=== PATIENT | female | born 1950 | race Caucasian/White ===

== ENCOUNTER 2022-03-26 08:35 | Outpatient (REF) | payer MEDICARE, OTHER, SELFPAY ==
--- NOTE | 2022-03-26 | PFT_ITS ---
INDICATION: Asthma. SPIROMETRY: FEV1 to FVC 71% with an FEV1 of 0.9 L, which is 49% predicted, an FVC of 1.25 L, which is 52% predicted. No significant response to bronchodilators noted. Maximum voluntary ventilation 47% predicted. LUNG VOLUMES: Total lung capacity 76% predicted. The expiratory reserve volume is 25% predicted. DIFFUSION CAPACITY: DLCO 90% predicted. COMPARISONS: None. INTERPRETATION: The patient appears to have obstructive ventilatory defect consistent with severe obstructive lung disease. She likely has a component of uncontrolled asthma and also of the possibility of asthma-COPD overlap syndrome. Based on the flow volume loop, it appears that she does have significant to the expiratory phase consistent with an obstructive process. In addition to that, she has significant small airways disease. Her maximum voluntary ventilation is also severely decreased suggesting significant deconditioning. Her lung volumes also demonstrate a restrictive ventilatory defect consistent with restrictive lung disease. Need to consider underlying interstitial lung conditions and/or neuromuscular conditions. Diffusion capacity is within normal limits. Clinical correlation warranted. MD JUAN M Bah/MODYenifer / [id number]
== END 2022-03-26 08:36 | disposition home or self-care (01) ==
LOC: HO.RESP 08:35
PROVIDERS: PCP Student in an Organized Health Care Education/Training Program; Visit Provider Student in an Organized Health Care Education/Training Program
DX: J45.909 Unspecified asthma, uncomplicated (principal)
CPT/HCPCS: 94060; 94727; 94729

== ENCOUNTER 2023-10-14 08:43 | Outpatient (REF) | payer MEDICARE, OTHER, SELFPAY ==
[2023-10-14 14:53] LABS: Anion Gap 15 (12-20); Blood Urea Nitrogen 13 mg/dL (9-16); Calcium 9.9 mg/dL (8.4-10.2); Carbon Dioxide 27 mmol/L (22-29); Chloride 101 mmol/L (96-108); Estimated Glomerular Filt Rate > 60; Glucose Random 103 mg/dL (60-115); Potassium 3.7 mmol/L (3.3-5.1); Sodium 139 mmol/L (135-145)
[2023-10-14 15:40] LABS: Creatinine Urine 37.55 mg/dL; Microalbum/Creatinine Ratio Ur 15.9 ug/mg cr (<30)
== END 2023-10-14 08:44 | disposition home or self-care (01) ==
LOC: HO.CHCLDS 08:43
PROVIDERS: Visit Provider Internal Medicine Nephrology
DX: I10 Essential (primary) hypertension (principal)
CPT/HCPCS: 36415; 80048; 82043; 82570

== ENCOUNTER 2024-03-09 07:05 | Day surgery (SDC) | payer MEDICARE, MEDICAID, SELFPAY ==
--- NOTE | 2024-03-07 10:20 | HO.ANESPROP2 ---
HPI - Anesthesia Eval Consult details Narrative: 73yo F for Colonoscopy PMFSH Active Problems Active Problems: All Active Problems Encounter for screening colonoscopy (Acute) Asthma (Acute) Past Medical History Medical History Hypothyroid Asthma Surgical History Surgical History Hx of colonoscopy Social History Social History Household Members: Spouse Alcohol intake: never Patient Tobacco Use Status: Never used Tobacco Current occupational status: unemployed Meds Allergies Allergy/AdvReac Type Severity Reaction Status Date / Time nifedipine [From ADALAT] Allergy Unknown EASH Verified 03/09/24 08:17 verapamil [VERAPAMIL] Allergy Unknown RASH Verified 03/09/24 08:17 Home Medications ?Medication ?Instructions ?Recorded ?Confirmed ?Last Taken ?Type albuterol sulfate 90 mcg/actuation 1 inh inhalation QID 10/14/23 03/09/24 03/09/24 06:30 History aerosol inhaler (Ventolin HFA) budesonide 180 mcg/actuation 1 inh inhalation DAILY 10/14/23 03/09/24 Unknown History breath activated powder inhaler (Pulmicort Flexhaler) hydralazine 25 mg tablet 25 mg PO TID 10/14/23 03/09/24 03/09/24 06:30 History hydrochlorothiazide 25 mg tablet 25 mg PO DAILY 10/14/23 03/09/24 03/09/24 06:30 History levothyroxine 25 mcg capsule 25 mcg PO DAILY 10/14/23 03/09/24 Unknown History Assessment and Plan Assessment Anesthesia Assessment: Chart Reviewed
--- NOTE | 2024-03-09 07:53 | MHC.SHP ---
Pre-Procedural Eval Section A - 24 Hr Update-Section A only Date of Service: 03/09/24 Section B - Complete if H&P > 30 days Chief Complaint: screening Details of Present Illness: asthma Allergies: Allergies Allergy/AdvReac Type Severity Reaction Status Date / Time nifedipine [From ADALAT] Allergy Unknown EASH Unverified 10/14/23 09:35 verapamil [VERAPAMIL] Allergy Unknown RASH Unverified 10/14/23 09:35 Review of Systems Review of Systems Comment: Ten point ROS negative Exam Exam Comment: Gen appear: No acute distress HEENT: no icterus Chest: No overt resp distress Abd: soft, nontender, nondistended Psych: Stable affect, answering questions appropriately Neuro: A/Ox3 noted to move all extremities spontaneously Ext: no peripheral edema Plan Diagnosis/Plan: Unchanged I have reviewed the history and physical and performed a pertinent physical examination on my patient. No changes have occurred unless specified. Time Spent With Patient Time: Total time managing care of this patient today ____ minutes.
[2024-03-09 08:18] VITALS: BMI 37.6
[2024-03-09 08:30] VITALS: BP 153/82; PULSE 108; RESP 16; TEMP 36.3; O2SAT 99
[2024-03-09] MEDS: Lactated Ringers 1,000 ML 100 ML IVCONT (08:50)
--- NOTE | 2024-03-09 09:19 | P.OPN-COLO_ITS ---
Colonoscopy Operative Note Operative Note Date of Service: 03/09/24 Narrative: Procedure: Colonoscopy Indication: Screening Endoscopist: Carol Lowe MD Anesthesia Provider: Dr Katarzyna Lambert Anesthesia type: MAC Instrument: Olympus [id number]-H190L Consent: Indication, risks vs benefits, and alternatives were discussed with the patient who gave written informed consent to proceed. EKG, pulse, pulse oximetry and blood pressure were monitored throughout the procedure. Please see anesthesia flowsheet. Procedure: The patient was brought to the procedure room and placed in the left lateral decubitus position. IV medications were administered by the anesthesia provider in attendance. A digital rectal exam was performed which was normal. A distal attachment cap was affixed to the tip of the colonoscope which was then inserted through the anus and advanced through the colon to the cecum at 75 c m,and terminal ileum. Appendiceal orifice and ileocecal valve were identified. Mucosa was carefully examined under high definition white light as the instrument was slowly withdrawn in a retrograde panoramic fashion. Retroflexion was performed in ascending colon and rectum. The procedure was not difficult. There were no immediate obvious complications. The quality of the prep was BBPS: 2+3+3 = adequate Withdrawal time 7 minutes. Limitations: No limitations. Findings: Mucosa: Normal to cecum and terminal ileum. Protruding lesions: * 1 sessile polyp of size 2 mm in sigmoid colon. Cold snare polypectomy was performed. The polyp was completely removed and retrieved. * Medium internal hemorrhoids without stigmata of recent bleeding. Excavated lesions: * Mild diverticulosis of sigmoid colon. Impression: 1. Normal colon and terminal ileum mucosa 2. Total of 1 polyp removed 3. Internal hemorrhoids 4. Diverticulosis Recommendations: - Follow path results. - Repeat colonoscopy in 7-10 years if patient in good health.
--- NOTE | 2024-03-09 09:39 | P.CONAN_ITS ---
[facility] Active Problems Active Problems: All Active Problems Encounter for screening colonoscopy (Acute) Asthma (Acute) Past Medical History Medical History Hypothyroid Asthma Functional capacity: independent ambulation Patient : No Family History Family history of problems with anesthesia: No Surgical History Surgical History Hx of colonoscopy History of Problems with Anesthesia: No Social History Social History Household Members: Spouse Alcohol intake: never Patient Tobacco Use Status: Never used Tobacco Use of substances other than those prescribed or required for medical reasons: No Are you DNR?: No Advance Directives: No Advance Directives Information Provided: Yes Current occupational status: unemployed Meds Allergies Allergy/AdvReac Type Severity Reaction Status Date / Time nifedipine [From ADALAT] Allergy Unknown EASH Verified 03/09/24 08:17 verapamil [VERAPAMIL] Allergy Unknown RASH Verified 03/09/24 08:17 Active Medications: Current Medications Albuterol Sulfate (Albuterol Sulfate (0.083%) 2.5 Mg/3 Ml Vial.Neb) 2.5 mg INHALE ONCE PRN PRN Reason: Shortness of Breath/Wheezing Lactated Ringer's (Lr) 1,000 mls @ 100 mls/hr IVCONT .Q10H CLAUDE Last Admin: 03/09/24 08:50 Dose: 100 mls/hr Home Medications ?Medication ?Instructions ?Recorded ?Confirmed ?Last Taken ?Type albuterol sulfate 90 mcg/actuation 1 inh inhalation QID 10/14/23 03/09/24 03/09/24 06:30 History aerosol inhaler (Ventolin HFA) budesonide 180 mcg/actuation 1 inh inhalation DAILY 10/14/23 03/09/24 Unknown History breath activated powder inhaler (Pulmicort Flexhaler) hydralazine 25 mg tablet 25 mg PO TID 10/14/23 03/09/24 03/09/24 06:30 History hydrochlorothiazide 25 mg tablet 25 mg PO DAILY 10/14/23 03/09/24 03/09/24 06:30 History levothyroxine 25 mcg capsule 25 mcg PO DAILY 10/14/23 03/09/24 Unknown History Exam Height,Weight and Vital Signs: Height 4 ft 11 in Weight 84.368 kg Last Vital Signs Temp 97.4 F 03/09/24 08:30 Pulse 108 H 03/09/24 08:30 Resp 16 03/09/24 08:30 BP 153/82 H 03/09/24 08:30 Pulse Ox 99 03/09/24 08:30 O2 Del Method Room Air 03/09/24 08:30 Airway Mallampati Class: III TM Dist: >3cm Neck ROM: Full Heart: RRR Lungs: CTA Assessment and Plan Assessment Anesthesia Assessment: Anesthesia Plan Discussed and Chart Reviewed Final Anesthetic Review Family History of Problems with Anesthesia: No History of Problems with Anesthesia: No NPO: Yes ASA Class: II Final Preanesthetic Review: Meds/Allgs Chart Reviewed, Consent Obtained/Reviewed and Anes Risks/Benef Reviewed Patient Risk: Low Procedure Risk: Low Anesthetic Plan Anesthetic Plan: MAC: Disposition: Standard PACU
[2024-03-09 09:50] VITALS: BP 105/61; PULSE 84; RESP 20; TEMP 36.4; O2SAT 96
[2024-03-09 10:05] VITALS: BP 123/73; PULSE 92; RESP 20; TEMP 36.6; O2SAT 98
--- NOTE | 2024-03-09 10:51 | HO.POSTANES ---
Post Anesthesia Evaluation Post Anesthesia Evaluation Date of Service: 03/09/24 Vital Signs: Vital Signs Temp Pulse Resp BP Pulse Ox O2 Del Method 03/09/24 10:05 98 F 92 20 123/73 98 Room Air 03/09/24 09:50 97.6 F 84 20 105/61 96 Room Air 03/09/24 08:30 97.4 F 108 H 16 153/82 H 99 Room Air Anesthesia: Monitored Mental Status: Awake Pain Control: Satisfactory Nausea/Vomiting: None Hydration: Adequate Anesthesia-Related Issues: No Anes. Related Issues
== END 2024-03-09 10:39 | disposition home or self-care (01) ==
PROVIDERS: PCP Student in an Organized Health Care Education/Training Program; Visit Provider Internal Medicine
PROC: 0DJD8ZZ Inspection of Lower Intestinal Tract, Via Natural or Artificial Opening Endoscopic (ICD-10-PCS; CPT 45378; principal; 2024-03-09 09:30)
DX: Z12.11 Encounter for screening for malignant neoplasm of colon (principal); D12.5 Benign neoplasm of sigmoid colon; K57.30 Diverticulosis of large intestine without perforation or abscess without bleeding; K64.8 Other hemorrhoids; J45.909 Unspecified asthma, uncomplicated; Z79.899 Other long term (current) drug therapy
CPT/HCPCS: 45385; 88305; J2003; J2704

== ENCOUNTER → 2024-03-09 07:05 | Outpatient (BNV) | payer MEDICARE, MEDICAID, SELFPAY | PROVIDERS: PCP Student in an Organized Health Care Education/Training Program; Visit Provider Internal Medicine | DX: Z12.11 Encounter for screening for malignant neoplasm of colon (principal); D12.5 Benign neoplasm of sigmoid colon; K57.30 Diverticulosis of large intestine without perforation or abscess without bleeding; K64.8 Other hemorrhoids | CPT/HCPCS: 45385 ==

== ENCOUNTER 2024-03-30 10:12 | Outpatient (REF) | payer MEDICARE, SELFPAY ==
[2024-03-30 14:15] LABS: Appearance Urine Clear; Color Urine Yellow; Glucose Urine UA Negative (Negative); Leukocyte Esterase Urine Moderate (2+) (Negative); Nitrite Urine Negative (Negative); PH 5.5 (5.0-9.0); Specific Gravity - Urine 1.015 (1.005-1.025); UMIC TRIGGER UACC YES; Urine Blood Negative (Negative); Urine Ketones Negative (Negative); Urine Protein Negative (Neg-Trace)
[2024-03-30 14:40] LABS: Bacteria Urine Trace (None Seen); Hyaline Casts Urine 0-2 /LPF (0-2); RBC Urine 0-2 /HPF (0-2); UACC Culture Trigger YES
[2024-03-30 14:56] LABS: MANUAL DIFF FLAG NO
[2024-03-30 15:02] LABS: Creatinine Urine 106.15 mg/dL; Microalbum/Creatinine Ratio Ur 7.5 ug/mg cr (<30)
[2024-03-30 15:03] LABS: Basophils Percent Auto 0.4 % (0-2); Eosinophils Absolute Auto 0.1 X10*3/uL (0.0-0.4); Eosinophils Percent Auto 1.9 % (0-4); Hematocrit 34.3 % (37.0-47.0); Imm Gran Abs Auto 0.02 X10*3/uL (0.00-0.03); Imm Gran Pct Auto 0.3 % (0.0-0.4); Lymphocytes Absolute Auto 2.1 X10*3/uL (1.2-4.9); Lymphocytes Percent Auto 28.5 % (20-40); Mean Corpuscular HGB Conc 29.2 g/dl (31.0-35.0); Mean Corpuscular Hemoglobin 21.4 pg (27.0-33.0); Mean Corpuscular Volume 73.4 fL (80.0-98.0); Mean Platelet Volume 9.2 fL (9.4-12.3); Monocytes Absolute Auto 0.5 X10*3/uL (0.1-1.2); Monocytes Percent Auto 7.4 % (2-11); Neutrophils Absolute Auto 4.4 x10*3/uL (2.0-8.3); Neutrophils Percent Auto 61.5 % (45-73); Platelet Count 337 X10*3/uL (160-400); Red Blood Count 4.67 X10*6/uL (4.20-5.50); Red Cell Distribution Width 17.7 % (11.0-16.0); White Blood Count 7.2 X10*3/uL (4.8-10.8)
[2024-03-30 15:10] LABS: Estimated Average Glucose 120 mg/dL; Hemoglobin A1C 108.1475 umol/L; Hemoglobin A1c % 5.8 % (<6.0); Total Hemoglobin (HGBA1C) 2733.0589 umol/L
[2024-03-30 15:24] LABS: Anion Gap 13 (12-20); Blood Urea Nitrogen 16 mg/dL (9-16); Calcium 9.8 mg/dL (8.4-10.2); Carbon Dioxide 26 mmol/L (22-29); Chloride 103 mmol/L (96-108); Cholesterol 155 mg/dL (<200); Estimated Glomerular Filt Rate > 60; Glucose Fasting 191 mg/dL (60-99); HDL Cholesterol 66 mg/dL (>40); LDL Cholesterol Calculated 67 mg/dL (<100); Potassium 4.1 mmol/L (3.3-5.1); Sodium 138 mmol/L (135-145); Triglycerides 113 mg/dL (<150)
== END 2024-03-30 10:13 | disposition home or self-care (01) ==
LOC: HO.CHCLDS 10:12
PROVIDERS: Visit Provider Internal Medicine Nephrology
DX: I10 Essential (primary) hypertension (principal); Z13.1 Encounter for screening for diabetes mellitus; R82.90 Unspecified abnormal findings in urine
CPT/HCPCS: 36415; 80048; 80061; 81001; 82043; 82570; 83036; 85025; 87086

== ENCOUNTER 2025-01-26 08:49 | Outpatient (REF) | payer MEDICARE, MEDICAID, SELFPAY ==
--- OUTSIDE RECORDS SUMMARY | 2025-01-25 10:15 | XMS_ITS | Encounter Summary ---
Author Organization [employer] Address [address] [facility] [address] [place] [address] Care Team Providers Care Police Matron Name Role Phone Dana Horton MD Primary Care Provider [phone] Reason for Visit * Reason Comments Adult care visit Encounter Details Date Type Department Care Team ([facility] st Contact Info) Description 01/25/2025 10:15 AM EDT Office Visit [facility] PEDS [address] [place] [address] Dana Horton MD [address] [place] [address] Essential hypertension (Primary Dx); Moderate persistent asthma with acute exacerbation; Hypothyroidism, unspecified type; Encounter for immunization; Candidal intertrigo; Encounter for annual wellness visit Social History Tobacco Use Types Packs/Day Years Used Date Smoking Tobacco: Never Passive Smoke Exposure: Never Smokeless Tobacco: Never Tobacco Cessation:Counseling Given: Not Answered Alcohol Use Standard Drinks/Week Comments Never 0 (1 standard drink = 0.6 oz pur e alcohol) Depression Answer Date Recorded Patient Health Questionnaire-9 Score 0 01/25/2025 Patient Health Questionnaire-9 Score 0 01/25/2025 Last PHQ-9: Questionnaire Data Not on file 0 01/25/2025 Housing Stability Answer Date Recorded What is your housing situation today? I have abhishek braswell 01/17/[address] you li ve. Do you have problems with any of the following? None of the above 01/17/2025 Food Insecurity Answer Date Recorded Within the past 12 months, y ou worried that your food would run out before you got money to buy more: Never True 01/17/2025 Within the past 12 months,th e food you bought just didn't last and you didn't have enough money to get more: Never True Transportation Answer Date Recorded In the past 12 months, has l ack of transportation kept you from medical appts, meetings, work or from getting things needed for daily living? No 01/17/2025 Utilities Answer Date Recorded In the past 12 months, has t he electric, gas, oil or water company threatened to shut off services in your home? No 01/17/2025 Depression Answer Date Recorded Patient Health Questionnaire-2 Score 0 01/25/2025 Internet Access Answer Date Recorded Internet Access Q1 Yes 01/17/2025 Internet Access Q2 Not on file 01/17/2025 Comments No Sex and Gender Information Value Date Recorded Sex Assigned at Female 03/23/2022 10:14 AM EDT Legal Sex Female 10:14 AM EDT Gender Identity Female 03/23/2022 10:14 AM EDT Sexual Orientation Straight 03/23/2022 10 :14 AM EDT documented as of this encounter Last Filed Vital Signs Vital Sign Reading Time Taken Comments Blood Pressure 157/88 01/25/2025 9:49 AM EDT Pulse 100 01/25/2025 9:49 AM EDT Temperature 36.1 C (97 F) 01/25/2025 9:49 AM EDT Respiratory Rate 22 01/25/2025 9:49 AM EDT Oxygen Saturation 99% 01/25/2025 9:49 AM EDT Inhaled Oxygen Concentration - - Weight 83 kg (183 lb) 01/25/2025 9:49 AM EDT Height 147.3 cm (4' 10 ) 01/25/2025 9:49 AM EDT Body Mass Index 38.25 01/25/2025 9:49 AM EDT documented in this encounter Functional Status * Over the past 2 weeks, how often have you been bothered by any of the following problems? Question Answer Date of Assessment Author Patient Health Questionnaire -2 Score 0 01/25/2025 10:03 AM EDT La Knight MA * Little interest or pleasure in doing things Answer Date of Assessment Author Not at all 01/25/2025 10:03 AM EDT Georgi Knight MA * Feeling down, depressed, or hopeless Answer Date of Assessment Author Not at all 01/25/2025 10:03 AM Georgi Chacon MA * Trouble falling or staying asleep, or sleeping too much Answer Date of Assessment Author Not at all 01/25/2025 10:03 AM Georgi Chacon MA * Feeling tired or having little energy Answer Date of Assessment Author Not at all 01/25/2025 10:03 AM Georgi Chacon MA * Poor appetite or overeating Answer Date of Assessment Author Not at all 01/25/2025 10:03 AM Georgi Chacon MA * Feeling bad about yourself - or that you are a failure or have let yourself or your family down Answer Date of Assessment Author Not at all 01/25/2025 10:03 AM Georgi Chacon MA * Trouble concentrating on things, such as reading the newspaper or watching television Answer Date of Assessment Author Not at all 01/25/2025 10:03 AM Georgi Chacon MA * Moving or speaking so slowly that other people could have noticed? Or the opposite - being so fidgety or restless that you have been moving around a lot more than usual. Answer Date of Assessment Author Not at all 01/25/2025 10:03 AM Georgi Chacon MA * Thoughts that you would be better off or hurting yourself in some way Answer Date of Assessment Author Not at all 01/25/2025 10:03 AM Georgi Chacon MA * Patient Health Questionnaire-9 Score Answer Date of Assessment Author 0 01/25/2025 10:03 AM Georgi Chacon MA documented as of this encounter Progress Notes * Dana Horton MD - 01/25/2025 10:15 AM EDT Images from the original note were not included. Subjective Patient ID: Josephine Guerrero is a 74 y.o. female who presents for Adult care visit. Hypertension This is a chronic problem. The current episode started more than 1 year ago. The problem is unchanged. The problem is controlled. Pertinent negatives include no chest pain, headaches, neck pain, palpitations or shortness of breath. Review of Systems Constitutional: Negative. Respiratory: Negative. Negative for shortness of breath. Cardiovascular: Negative for chest pain and palpitations. Gastrointestinal: Negative. Genitourinary: Negative. Musculoskeletal: Negative for neck pain. Neurological: Negative for headaches. Objective Physical Exam Constitutional: Appearance: Normal appearance. HENT: Head: Normocephalic and atraumatic. Right Ear: Tympanic membrane normal. Left Ear: Tympanic membrane normal. Mouth/Throat: Mouth: Mucous membranes are moist. Eyes: Pupils: Pupils are equal, round, and reactive to light. Cardiovascular: Rate and Rhythm: Normal rate and regular rhythm. Pulmonary: Effort: Pulmonary effort is normal. Breath sounds: Normal breath sounds. Abdominal: General: Abdomen is flat. Palpations: Abdomen is soft. Musculoskeletal: General: Normal range of motion. Skin: General: Skin is warm. Findings: Rash present. Rash is macular. Neurological: General: No focal deficit present. Mental Status: She is alert. Psychiatric: Mood and Affect: Mood normal. Behavior: Behavior normal. Assessment/Plan Diagnoses and all orders for this visit: Essential hypertension Comments: Well controlled No changes in meds Maintain a low-sodium diet (less than 2 grams per day). Maintain a regular cardiovascular exercise program. Advised to maintain a low-fat, low-cholesterol diet. Counseled regarding importance of weight loss. Counseled re: potential co-morbidities including cardiovascular disease. Orders: - Basic Metabolic Panel; Future - Lipid Panel, Standard; Future - Hepatic Function Panel; Future Moderate persistent asthma with acute exacerbation Comments: Stable No acute episodes Hypothyroidism, unspecified type Comments: Labs ordered today Orders: - TSH with Reflex to Free T4; Future Encounter for immunization Candidal intertrigo Comments: Started On Nystatin piwder Advised to keep area dry and Clean Other orders - aspirin 81 MG EC tablet; Take 1 tablet (81 mg) by mouth Once per day. - nystatin (Mycostatin) 043935 UNIT/GM powder; Apply topically 2 times daily. documented in this encounter Plan of Treatment Upcoming Encounters Date Type Department Care Team (Late st Contact Info) Description 05/11/2025 10:00 AM EST Office Visit [facility] ADULT DENTAL [address] [place] [address] Aminta Rico Scheduled Orders Name Type Priority Associated Diagnoses Orde r Schedule Basic Metabolic Panel Lab Routine Essential hypertension Expected: 01/25/2025 (Approximate), Expires: 01/25/2026 Lipid Panel, Standard Lab Routine Essential hypertension Expected: 01/25/2025 (Approximate), Expires: 01/25/2026 Hepatic Function Panel Lab Routine Essential hypertension Expected: 01/25/2025 (Approximate), Expires: 01/25/2026 TSH with Reflex to Free T4 Lab Routine Hypothyroidism, unspecified type Expected: 01/25/2025 (Approximate), Expires: 01/25/2026 documented as of this encounter Visit Diagnoses Diagnosis Essential hypertension- Primary Unspecified essential hypertension Moderate persistent asthma with acute exacerbation Hypothyroidism, unspecified type Encounter for immunization Candidal intertrigo Candidiasis of skin and nails Encounter for annual wellness visit documented in this encounter Additional Health Concerns Assessment Noted Time PHQ-9 Depression Total Score: 0 01/26/20 25 10:03 AM EDT documented as of this encounter Care Teams Police Matron Relationship Specialty Start Date End Date Dana Horton MD [address] [place] [id number] PCP - General Family Medicine 10/25/17 documented as of this encounter
--- OUTSIDE RECORDS SUMMARY | 2025-01-26 09:28 | XMS_ITS | Encounter Summary ---
Author Organization [facility], Address [address] [place] [address] Phone Care Team Providers Care [employer] Teacher Name Role Phone Dana Horton MD Primary Care Provider [phone] Encounter Details Date Type Department Care Team (Late Contact Info) Description 11/12/2021 Documentation Only [facility] [address] [place] [phone] Elsa Puente PA [address] [place] [phone] Social History Tobacco Use Types Packs/Day Years Used Date Smoking Tobacco: Never Alcohol Use Standard Drinks/Week Comments No 0 (1 standard drink = 0.6 oz pur e alcohol) Comments Unknown Sex and Gender Information Value Date Recorded Sex Assigned at Not on file Legal Sex Female 4:32 PM EST Gender Identity Not on file Sexual Orientation Not on file documented as of this encounter Plan of Treatment Upcoming Encounters Date Type Department Care Team (Late st Contact Info) Description 03/14/2025 9:40 AM EDT Office Visit [facility] [address] [place] [phone] Alfredo Iglesias MD [address] [place] [phone] documented as of this encounter Visit Diagnoses Not on filedocumented in this encounter Care Teams [employer] Teacher Relationship Specialty Start Date End Date Dana Horton MD [address] [place] [address] PCP - General 03/28/19 documented as of this encounter
--- OUTSIDE RECORDS SUMMARY | 2025-01-26 09:28 | XMS_ITS | Clinical Summary ---
Author Organization [facility], Address [address] [place] [address] [place] [address] Phone Care Team Providers Care Handbell Choir Director Name Role Phone Dana Horton MD Primary Care Provider [phone] Allergies Active Allergy Reactions Criticality Noted Date Comments Nick Inhibitors Other (see comments) 04/10/2020 Cough Nifedipine 04/10/2020 Verapamil 04/10/2020 Medications hydroCHLOROthia zide (HYDRODIURIL) 25 MG tablet Take 25 mg by mouth 1 (one) time each day Active irbesartan (AVAPRO) 300 MG tablet Take 300 mg by mouth every night Active SUMAtriptan (IMITREX) 100 MG tablet Take 100 mg by mouth 1 (one) time if needed for migraine Active aspirin (Aspirin EC Low Strength) 81 MG EC tablet Take 81 mg by mouth 1 (one) time each day Active topiramate (TOPAMAX) 25 MG tablet Take 1 tablet by mouth 1 (one) time each day Active metoprolol succinate XL (Toprol XL) 100 MG 24 hr tablet Take 1 tablet by mouth 1 (one) time each day 6 Active hydrALAZINE 25 MG tablet Take 25 mg by mouth daily Active levothyroxine (SYNTHROID, LEVOTHROID) 25 MCG tablet Take 25 mcg by mouth 1 (one) time each day 2 Active FeroSul 325 (65 Fe) MG tablet TAKE 1 TABLET BY MOUTH EVERY DAY WITH BREAKFAST 30 tablet 11 2 Active Active Problems Problem Noted Date Diagnosed Date Chronic kidney disease 09/28/2019 Essential (primary) hypertension 09/28/2019 Resolved Problems Problem Noted Date Diagnosed Date Resolved Date Other iron deficiency anemia 04/11/2020 10/13/2020 Cyst of kidney 10/02/2019 10/13/2020 Anemia in chronic kidney disease 09/28/2019 10/13/2020 Immunizations Immunization Administration Dates Next Due H1N1 Inj 04/22/2016 Moderna SARS-COV-2 09/18/2020,08/21/2020 Family History Medical History Relation Comments Diabetes Father Cancer Mother aunts Hypertension Mother Hypertension Sibling 1 Stroke Sibling 2 brother Relation Status Comments Father Unknown Mother Unknown Sibling 1 Sibling 2 Social History Tobacco Use Types Packs/Day Years Used Date Smoking Tobacco: Never Tobacco Cessation:Counseling Given: Not Answered Alcohol Use Standard Drinks/Week Comments No 0 (1 standard drink = 0.6 oz pur e alcohol) Comments Unknown Sex and Gender Information Value Date Recorded Sex Assigned at Not on file Legal Sex Female 4:32 PM EST Gender Identity Not on file Sexual Orientation Not on file Last Filed Vital Signs Vital Sign Reading Time Taken Comments Blood Pressure 126/86 06/30/2022 1:27 PM EST Pulse 77 03/30/2019 12:00 PM EST Temperature - - Respiratory Rate 16 03/30/2019 12:00 PM EST Oxygen Saturation - - Inhaled Oxygen Concentration - - Weight 84.9 kg (187 lb 3.2 oz) 06/30/2022 1:27 P M EST Height 149.9 cm (4' 11 ) 06/30/2022 1:27 PM EST Body Mass Index 37.81 06/30/2022 1:27 PM EST Plan of Treatment Upcoming Encounters Date Type Department Care Team (Late st Contact Info) Description 03/14/2025 9:40 AM EDT Office Visit [facility], [address] [place] [phone] Alfredo Iglesias MD [address] [facility] [place] [address] Health Maintenance Due Date Last Done Comments Breast Cancer Screening 1952 Colorectal Cancer Screening: Annual FOBT 2001 Colorectal Cancer Screening: Colonoscopy 2001 Colorectal Cancer Screening: Sigmoidoscopy 2001 Diabetes: Hemoglobin A1C 02/03/2024 06/25/2022 Diabetes: Ophthalmology Exam 02/03/2024 Diabetes: Pedal Pulse Checked 02/03/2024 Diabetes: Sensory Foot Exam 02/03/2024 Diabetes: Visual Foot Exam 02/03/2024 Influenza Vaccine (#1) 2025 , 03/07/2019, 04/28/2018, Additional history exists Pneumococcal Vaccine: 50+ Years Completed 11/11/2022, 07/27/2018 Pneumococcal Vaccine: Peds (0 to 5 Years) and At-Risk Patients (6 to 49 Years) Discontinued 11/11/2022, 07/27/2018 Hepatitis B Vaccine Aged Out No longe r eligible based on patient's age to complete this topic Procedures Procedure Name Priority Date/Time Associated Diagnosis Comments HEMOGLOBIN A1C Routine 06/25/2022 9:08 AM EST Chronic kidney disease stage 2 Essential (primary) hypertension Other iron deficiency anemia Plantar fasciitis Other low back pain from Last 3 Months or Most Recently Relevant to Health Maintenance Results * (ABNORMAL) Hemoglobin A1c (06/25/2022 9:08 AM EST) Hemoglobin A1C 5.7(H) (4.0-5.6) % [facility] Comment: MONITORING: In known diabetic patients, hemoglobin A1c targets should be discussed with health care provider. DIAGNOSTIC USE: The [place] Diabetes [employer] (ADA) and the World Health Organization (WHO) recommend the use of HbA1c to diagnose diabetes using a threshold of 6.5%. Patients who have an HbA1c between 5.7% and 6.4% are considered at increased risk for developing diabetes in the future. CAUTION: Falsely low HbA1c results may be observed in patients with hemolytic anemia, homozygous forms of abnormal hemoglobin (e.g. SS, CC, SC), , recent blood loss or hemoglobin F greater than 7%. Fructosamine may be used as an alternate test in these cases. REFERENCE: ADA: Standards of Medical Care in Diabetes 2020, The Journal of Clinical and Applied Research and Education Volume 43, Supplement 1 Testing performed or reported by [facility] [employer], a Service of [facility], [address] [place] [address] Matt Paz MD, Natural Gas Treating Unit Operator [facility]# [id number] Blood specimen (specimen) Venous blood / Unknown 06/25/2022 9:08 AM EST 06/25/2022 9:10 AM EST Elsa JONES LAB BLOOD ORDERABLES Final Re sult DK from Last 3 Months or Most Recently Relevant to Health Maintenance Insurance Medicare Medicaid [place] Care Teams Handbell Choir Director Relationship Specialty Start Date End Date Dana Horton MD [address] [place] [id number] PCP - General 03/28/19
--- OUTSIDE RECORDS SUMMARY | 2025-01-26 09:28 | XMS_ITS | Encounter Summary ---
Author Organization [employer] Address [address] [facility] 7t [place] [address] Care Team Providers Care Construction Controller Name Role Phone Dana Horton MD Primary Care Provider [phone] Reason for Visit * Reason Onset Date Comments Chart prep 01/24/2025 Encounter Details Date Type Department Care Team ([facility] st Contact Info) Description 01/24/2025 Telephone [facility] MED & PEDS [address] [place] [address] Dana Horton MD [address] [place] [address] Chart prep Social History Tobacco Use Types Packs/Day Years Used Date Smoking Tobacco: Never Passive Smoke Exposure: Never Smokeless Tobacco: Never Alcohol Use Standard Drinks/Week Comments Never 0 [...] AM EDT documented as of this encounter Miscellaneous Notes * Telephone Encounter - La Knight [place] - 01/24/2025 2:54 PM EDT Chart Prep Labs: done Images: done Referrals: complete Vaccines due: due Screenings: STI screening Overdue care gaps: SBIRT and PHQ-9 documented in this encounter Plan of Treatment Upcoming Encounters Date Type Department Care Team (Late st Contact Info) Description 05/11/2025 10:00 AM EST Office Visit [facility] ADULT D[facility] [address] [place] [address] Aminta Rico documented as of this encounter Visit Diagnoses Not on filedocumented in this encounter Additional Health Concerns Assessment Noted Time PHQ-9 Depression Total Score: 0 11/12/19 23 10:21 AM EDT documented as of this encounter Care Teams Construction Controller Relationship Specialty Start Date End Date Dana Horton MD [address] [place] [id number] PCP - General Family Medicine 10/25/17 documented as of this encounter
--- OUTSIDE RECORDS SUMMARY | 2025-01-26 09:28 | XMS_ITS | Encounter Summary ---
Author Organization [employer] Address [address] [facility] 7t [place] [address] Care Team Providers Care Electrical Engineering Technician Name Role Phone Dana Horton MD Primary Care Provider [phone] Reason for Visit * Reason Comments Med Refill Encounter Details Date Type Department Care Team ([facility] st Contact Info) Description 01/20/[address] [facility] MED & PEDS [address] [place], [place] [phone] Dana Horton MD [address] [place] [address] Social History Tobacco Use Types Packs/Day Years Used Date Smoking Tobacco: Never Passive Smoke Exposure: Never Smokeless Tobacco: Never Alcohol Use Standard Drinks/Week Comments Never 0 (1 standard drink = 0.6 oz pur e alcohol) Depression Answer Date Recorded Patient Health Questionnaire-9 Score 0 11/11/2022 Housing Stability Answer Date Recorded What is [...] Date Recorded Patient Health Questionnaire-2 Score 0 11/11/2022 Internet Access Answer Date Recorded Internet Access Q1 Yes 01/17/2025 Internet Access Q2 Not on file 01/17/2025 Comments No Sex and Gender Information Value Date Recorded Sex Assigned at Female 03/23/2022 10:14 AM EDT Legal Sex Female 10:14 AM EDT Gender Identity Female 03/23/2022 10:14 AM EDT Sexual Orientation Straight 03/23/2022 10 :14 AM EDT documented as of this encounter Plan of Treatment Upcoming Encounters Date Type Department Care Team (Late st Contact Info) Description 05/11/2025 10:00 AM EST Office Visit [facility] [address] [place] [address] Aminta Rico documented as of this encounter Visit Diagnoses Not on filedocumented in this encounter Additional Health Concerns Assessment Noted Time PHQ-9 Depression Total Score: 0 11/12/19 23 10:21 AM EDT documented as of this encounter Care Teams Electrical Engineering Technician Relationship Specialty Start Date End Date Dana Horton MD [address] [place] [id number] PCP - General Family Medicine 10/25/17 documented as of this encounter
--- OUTSIDE RECORDS SUMMARY | 2025-01-26 09:28 | XMS_ITS | Encounter Summary ---
Author Organization [facility], Address [address] [place] [address] Phone Care Team Providers Care Mechanical Door Repairer Name Role Phone Dana Horton MD Primary Care Provider [phone] Encounter Details Date Type Department Care Team (Late st Contact Info) Description 11/04/2021 Documentation Only [facility] [address] [phone] Donny Doty MD [address] [place] [address] [place] [phone] Social History Tobacco Use Types Packs/Day Years [...] Visit [facility] [address] [phone] Alfredo Iglesias MD [address] [facility] [place] [phone] documented as of this encounter Visit Diagnoses Not on filedocumented in this encounter Care Teams Mechanical Door Repairer Relationship Specialty Start Date End Date Dana Horton MD [address] [place] [id number] PCP - General 03/28/19 documented as of this encounter
--- OUTSIDE RECORDS SUMMARY | 2025-01-26 09:28 | XMS_ITS | Encounter Summary ---
Author Organization [employer] Address [address] [facility] 7t [place] [address] Care Team Providers Care Site Director Name Role Phone Dana Horton MD Primary Care Provider [phone] Encounter Details Date Type Department Care Team ([facility] st Contact Info) Description 06/23/2024 Telephone [facility] [address] [place], [place] [phone] Medhat Charles DDS [address] [place], [place] [phone] Social History Tobacco Use Types Packs/Day Years Used Date Smoking Tobacco: Never Passive Smoke Exposure: Never Smokeless Tobacco: Never Alcohol Use Standard Drinks/Week Comments Never 0 (1 standard drink = 0.6 oz pur e alcohol) Depression Answer Date Recorded Patient Health Questionnaire-9 Score 0 11/11/2022 Housing Stability Answer Date Recorded What is your housing situation today? I have abhishek braswell 04/03/[address] you li ve. Do you have problems with any of the following? None of the above 04/03/2023 Food Insecurity Answer Date Recorded Within the past 12 months, y ou worried that your food would run out before you got money to buy more: Never True 04/03/2023 Within the past 12 months,th e food you bought just didn't last and you didn't have enough money to get more: Never True 03/2023 Transportation Answer Date Recorded In the past 12 months, has l ack of transportation kept you from medical appts, meetings, work or from getting things needed for daily living? No 04/03/2023 Utilities Answer Date Recorded In the past 12 months, has t he electric, gas, oil or water company threatened to shut off services in your home? No 04/03/2023 Depression Answer Date Recorded Patient Health Questionnaire-2 Score 0 11/11/2022 Comments No Sex and Gender Information Value [...] Description 05/11/2025 10:00 AM EST Office Visit [facility] ADULT [facility] [address] [place] [address] Aminta Rico documented as of this encounter Visit Diagnoses Not on filedocumented in this encounter Additional Health Concerns Assessment Noted Time PHQ-9 Depression Total Score: 0 11/12/19 23 10:21 AM EDT documented as of this encounter Care Teams Site Director Relationship Specialty Start Date End Date Dana Horton MD [address] [place] [phone] PCP - General Family Medicine 10/25/17 documented as of this encounter
--- OUTSIDE RECORDS SUMMARY | 2025-01-26 09:28 | XMS_ITS | Encounter Summary ---
Author Organization [facility], Address [address] [place] [address] Phone Care Team Providers Care Sheriff'S Officer Name Role Phone Dana Horton MD Primary Care Provider [phone] Encounter Details Date Type Department Care Team (Late st Contact Info) Description 11/03/2021 Documentation Only [facility] [address] [facility] [place] [phone] Donny Doty MD [address] [place] [address] [place] [phone] Social History Tobacco Use Types Packs/Day Years [...] Visit [facility] [address] [facility] [place] [phone] Alfredo Iglesias MD [address] [facility] [place] [phone] documented as of this encounter Visit Diagnoses Not on filedocumented in this encounter Care Teams Sheriff'S Officer Relationship Specialty Start Date End Date Dana Horton MD [address] [place] [phone] PCP - General 03/28/19 documented as of this encounter
--- OUTSIDE RECORDS SUMMARY | 2025-01-26 09:28 | XMS_ITS | Encounter Summary ---
Author Organization [facility], Address [address] [place] [address] Phone Care Team Providers Care Lard Renderer Name Role Phone Dana [place]orton MD Primary Care Provider [phone] Encounter Details Date Type Department Care Team (Late st Contact Info) Description 11/04/2021 Documentation Only [facility] [address] [place] [phone] Elsa Puente PA [address] [place] [phone] Social History Tobacco Use Types Packs/Day Years [...] Visit [facility] [address] [place] [phone] Alfredo Iglesias MD [address] [facility] [place] [phone] documented as of this encounter Visit Diagnoses Not on filedocumented in this encounter Care Teams Lard Renderer Relationship Specialty Start Date End Date Dana Horton MD [address] [place] [address] PCP - General 03/28/19 documented as of this encounter
--- OUTSIDE RECORDS SUMMARY | 2025-01-26 09:28 | XMS_ITS | Encounter Summary ---
Author Organization [employer] Address [address] [facility] 7t [place] [address] Care Team Providers Care Deckhand Crab Boat Name Role Phone Dana [place] MD Primary Care Provider [phone] Encounter Details Date Type Department Care Team (Latest Contact Info) Description 10/03/2018 Abstract [facility] CONVERSIONS Dental, Provider, DDS Social History Tobacco Use Types Packs/Day Years Used Date Smoking Tobacco: Never Assessed Comments Unknown Sex and Gender Information Value [...] Description 05/11/2025 10:00 AM EST Office Visit [facility] ADULT [facility] [address] [place] [address] Aminta Rico documented as of this encounter Visit Diagnoses Not on filedocumented in this encounter Care Teams Deckhand Crab Boat Relationship Specialty Start Date End Date Dana Horton MD [address] [place] [address] PCP - General Family Medicine 10/25/17 documented as of this encounter
--- OUTSIDE RECORDS SUMMARY | 2025-01-26 09:28 | XMS_ITS | Clinical Summary ---
Author Organization [facility] Address [address] [place] [address] Phone Care Team Providers Care Elementary Spanish Teacher Name Role Phone Dana Horton MD Primary Care Provider [phone] Immunizations Name Administration Dates Next Due Moderna SARS-CoV-2 COVID-19, mRNA, LNP-S, preservative free 09/18/2020,08/21/2020 Surgical History Surgery Date Site/Laterality Comments SECTION PROCEDURE: ME DELIVERY ONLY STEREOTACTIC CORE BIOPSY Left Medical History Medical History Date Comments Obesity DX:Obesity Impaired fasting glucose DX:Impa ired fasting glucose Back pain DX:Back pain Migraine DX:Migraine Hypertension DX:Hypertension Tubular adenoma of colon DX:Tubu lar adenoma of colon Anxiety DX:Anxiety Kidney disease DX:Kidney diseas e Family History Medical History Relation Name Comments Hypertension Brother Stroke Brother Diabetes Father Hypertension Mother Breast cancer Mother's Sister Relation Name Status Comments Brother Father Mother Mother's Sister Alive Social History Tobacco Use Types Packs/Day Years Used Date Smoking Tobacco: Never Smokeless Tobacco: Never Comments No Sex and Gender Information Value Date Recorded Sex Assigned at Not on file Legal Sex Female 2:28 AM EST Gender Identity Not on file Sexual Orientation Not on file Obstetrics History Para Term AB IAB SAB Ectopic Multiple Livin g Live Births 3 Last Filed Vital Signs Vital Sign Reading Time Taken Comments Blood Pressure 136/93 10/07/2021 2:19 PM EDT pt state she took her BP med today Pulse 117 10/07/2021 2:19 PM EDT Temperature - - Respiratory Rate - - Oxygen Saturation - - Inhaled Oxygen Concentration - - Weight 77.1 kg (170 lb) 08/25/2024 10:2 4 AM EDT Height 152.4 cm (5') 08/25/2024 10:24 AM EDT Body Mass Index 33.2 08/25/2024 10:24 AM EDT Plan of Treatment Health Maintenance Due Date Last Done Comments RSV Immunization Adult Patients (1 - Risk 60-74 years 1-dose series) 2012 Zoster Vaccines (2 of 3) 01/10/2015 11/15/2014 Colorectal Cancer Screening: Colonoscopy 05/03/2022 Falls Risk Assessment 05/03/2022 Hepatitis C Screening 05/03/2022 Medicare Annual Wellness Visit 05/03/2022 Osteoporosis Screening (Bone Density Screening) 05/03/2022 Social Influencers of Health Screening 05/03/2022 Depression Screening 05/24/2024 Hypertension/CHF/CAD Annual BMP Blood Test 08/25/2024 COVID-19 Vaccine ( season) 2025 04/21/2022, 07/08/2021, 09/18/2020, Additional history exists Influenza Vaccine (#1) 2025 , 04/22/2021, 02/26/2020, Additional history exists Breast Cancer Screening 08/25/2026 08/26/19, 08/25/2023, 08/20/2022, Additional history exists Cholesterol Screening (Lipid Panel) 11/12/2027 11/11/2022 DTaP,Tdap,and Td Vaccines (5 - Td or Tdap) 11/11/2032 11/11/2022, 07/23/2011, 11/13/2005, Additional history exists Pneumococcal Vaccine: 50+ Years Completed 11/11/2022, 07/27/2018 HIB Vaccines Aged Out No longer eligi ble based on patient's age to complete this topic HPV Vaccines Aged Out No longer eligi ble based on patient's age to complete this topic Hepatitis A Vaccines Aged Out No long er eligible based on patient's age to complete this topic Hepatitis B Vaccines Aged Out No long er eligible based on patient's age to complete this topic IPV Vaccines Aged Out No longer eligi ble based on patient's age to complete this topic MMR Vaccines Aged Out No longer eligi ble based on patient's age to complete this topic Meningococcal ACWY Vaccine Aged Out N o longer eligible based on patient's age to complete this topic Meningococcal B Vaccine Aged Out No l onger eligible based on patient's age to complete this topic RSV Immunization Patients Under 20 months Aged Out No longer eligible based on patient's age to complete this topic Varicella Vaccines Aged Out No longer eligible based on patient's age to complete this topic Procedures Procedure Name Priority Date/Time Associated Diagnosis Comments MG MAMMO DIGITAL SCREENING W JARET BILAT Routine 08/25/2024 10:30 AM EDT Encounter for screening mammogram for breast cancer from Last 3 Months or Most Recently Relevant to Health Maintenance Results * MG Mammo Digital Screening w Jaret bilat (08/25/2024 10:30 AM EDT) Anatomical Region Laterality Modality Breast Bilateral Mammography 08/25/2024 11:1 2 AM EDT Impressions 08/25/2024 11:14 AM EDT No evidence for malignancy. BI-RADS CATEGORY: 1 - NEGATIVE RECOMMENDATION: Screening bilateral mammogram is recommended in 1 year. Mammo Location: [facility], [address] [place] [address], [facility], . -------- FINAL REPORT -------- Dictated By: Natalie Ruffin Dictated Date: 08/25/2024 11:12 ET Assigned Physician: Natalie Ruffin Reviewed and Electronically Signed By: Natalie Ruffin Signed Date: 08/25/2024 11:14 ET Workstation ID: [id number] Transcribed By: Self Edit Transcribed Date: 08/25/2024 11:12 ET Narrative 08/25/2024 11:14 AM EDT CLINICAL: 74 years old, Female, routine annual exam. COMPARISON: 08/25/2023, 08/20/2022, 08/18/2021, 08/14/2020 and 08/02/2019 TECHNIQUE: Bilateral MLO and CC views were obtained digitally with 3-D mammogram (digital breast tomosynthesis). Computer-aided detection was utilized in evaluation of this exam (CAD). FINDINGS: There is no evidence of suspicious mass or architectural distortion. No worrisome calcifications are evident. There has been no significant change from prior exam(s). Stable oval masses in the left breast compatible with cysts. BREAST DENSITY: B - There are scattered areas of fibroglandular density. Procedure Note Natalie Ruffin MD - 08/25/2024 CLINICAL: 74 years old, Female, routine annual exam. COMPARISON: 08/25/2023, 08/20/2022, 08/18/2021, 08/14/2020 and 08/02/2019 TECHNIQUE: Bilateral MLO and CC views were obtained digitally with 3-Dmammogram (digital breast tomosynthesis). Computer-aided detection wasutilized in evaluation of this exam (CAD). FINDINGS: There is no evidence of suspicious mass or architectural distortion. Noworrisome calcifications are evident. There has been no significantchange from prior exam(s). Stable oval masses in the left breastcompatible with cysts. BREAST DENSITY: B - There are scattered areas of fibroglandular density. IMPRESSION: No evidence for malignancy. BI-RADS CATEGORY: 1 - NEGATIVE RECOMMENDATION: Screening bilateral mammogram is recommended in 1 year. Mammo Location: [facility], [address] [place] [address], [id number], . -------- FINAL REPORT -------- Dictated By: Natalie Ruffin Dictated Date: 08/25/2024 11:12 ET Assigned Physician: Natalie Ruffin Reviewed and Electronically Signed By: Natalie Ruffin Signed Date: 08/25/2024 11:14 ET Workstation ID: [id number] Transcribed By: Self Edit Transcribed Date: 08/25/2024 11:12 ET us Self Referral Sppl IMG BI PROCEDURES Final Resul t from Last 3 Months or Most Recently Relevant to Health Maintenance Insurance MEDICAID - [place] MEDICARE Care Teams Elementary Spanish Teacher Relationship Specialty Start Date End Date Dana Horton MD [address] [place] [id number] PCP - General Family Medicine 08/25/24
--- OUTSIDE RECORDS SUMMARY | 2025-01-26 09:28 | XMS_ITS | Encounter Summary ---
Author Organization [employer] Address [address] [facility] 7t [place] [address] Care Team Providers Care Central Office Repairer Supervisor Name Role Phone Dana Horton MD Primary Care Provider Reason for Visit * Reason Onset Date Comments temp crown fell off recement?? 06/23/2024 Encounter Details Date Type Department Care Team ([facility] st Contact Info) Description 06/23/2024 Telephone [facility] CHC ADULT DENTAL [address] [place], [place] [phone] Wesley Tristan, DMD [address] [place] [address] temp crown fell off recement?? Social History Tobacco Use Types Packs/Day Years [...] encounter Miscellaneous Notes * Telephone Encounter - Ana Martinez - 06/23/2024 10:50 AM EST Patient called in to report that her temporary crown fell off. Reached out to [facility] front counter attendant. [employer] is speaking to a provider and will reach out to patient to confirm when patient can come in torecement DR documented in this encounter Plan of Treatment Upcoming Encounters Date Type Department Care Team (Late st Contact Info) Description 05/11/2025 10:00 AM EST Office Visit [facility] ADULT DENTAL [address] [place] [address] Aminta Rico documented as of this encounter Visit Diagnoses Not on filedocumented in this encounter Additional Health Concerns Assessment Noted Time PHQ-9 Depression Total Score: 0 11/12/19 23 10:21 AM EDT documented as of this encounter Care Teams Central Office Repairer Supervisor Relationship Specialty Start Date End Date Dana Horton MD [address] [place] [address] PCP - General Family Medicine 10/25/17 documented as of this encounter
--- OUTSIDE RECORDS SUMMARY | 2025-01-26 09:28 | XMS_ITS | Encounter Summary ---
Author Organization [employer] Address [address] [facility] 7t [place] [address] Care Team Providers Care Air Pollution Engineer Name Role Phone Dana Horton MD Primary Care Provider [phone] Encounter Details Date Type Department Care Team (Latest Contact Info) Description 12/26/2020 Abstract [facility] CONVERSIONS Dental, Provider, DDS Social [...] [facility] ADULT DENTAL [address] [place] [address] Aminta Rico documented as of this encounter Visit Diagnoses Not on filedocumented in this encounter Care Teams Air Pollution Engineer Relationship Specialty Start Date End Date Dana Horton MD [address] [place] [address] PCP - General Family Medicine 10/25/17 documented as of this encounter
--- OUTSIDE RECORDS SUMMARY | 2025-01-26 09:28 | XMS_ITS | Encounter Summary ---
Author Organization [employer] Address [address] [facility] 7t [place] [address] Care Team Providers Care Board Machine Set Up Operator Name Role Phone Dana Horton MD Primary Care Provider [phone] Reason for Visit * Reason Onset Date Comments Med Change Request 01/19/2024 Encounter Details Date Type Department Care Team ([facility] Contact Info) Description 01/19/2024 Telephone [facility] MEDICINE [address] [place] [address] Dana Horton MD [address] [place] [address] Med Change Request Social History Tobacco Use Types Packs/Day Years Used Date Smoking Tobacco: Never Smokeless Tobacco: Never Alcohol Use Standard [...] encounter Miscellaneous Notes * Telephone Encounter - Ziggy Orozco - 01/19/2024 11:41 AM EDT Tc from patient requesting the medication hydrALAZINE (Apresoline) 25 MG tablet to be changed to a 90 day supply documented in this encounter Plan of Treatment Upcoming Encounters Date Type Department Care Team (Late st Contact Info) Description 05/11/2025 10:00 AM EST Office Visit [facility] ADULT DENTAL [address] [place] [address] Aminta Rico documented as of this encounter Visit Diagnoses Not on filedocumented in this encounter Additional Health Concerns Assessment Noted Time PHQ-9 Depression Total Score: 0 11/12/19 23 10:21 AM EDT documented as of this encounter Care Teams Board Machine Set Up Operator Relationship Specialty Start Date End Date Dana Horton MD [address] [place] [address] PCP - General Family Medicine 10/25/17 documented as of this encounter
--- OUTSIDE RECORDS SUMMARY | 2025-01-26 09:28 | XMS_ITS | Encounter Summary ---
Author Organization [employer] Address [address] [facility] 7t [place] [address] Care Team Providers Care Lime Slaker Name Role Phone Dana Horton MD Primary Care Provider [phone] Reason for Visit * Reason Comments Med Refill Encounter Details Date Type Department Care Team ([facility] st Contact Info) Description 01/19/2024 Refill [facility] CHC MED & PEDS [address] [place], [place] [phone] Dana Horton MD [address] [place] [address] Social History Tobacco Use Types Packs/Day Years [...] Description 05/11/2025 10:00 AM EST Office Visit [facility] ADULT DENTAL [address] [place] [address] Aminta Rico documented as of this encounter Visit Diagnoses Not on filedocumented in this encounter Additional Health Concerns Assessment Noted Time PHQ-9 Depression Total Score: 0 11/12/19 23 10:21 AM EDT documented as of this encounter Care Teams Lime Slaker Relationship Specialty Start Date End Date Dana Horton MD [address] [place] [address] PCP - General Family Medicine 10/25/17 documented as of this encounter
--- OUTSIDE RECORDS SUMMARY | 2025-01-26 09:28 | XMS_ITS | Encounter Summary ---
Author Organization [facility], Address [address] [place] [address] Phone Care Team Providers Care Card Feeder Name Role Phone Dana Horton MD Primary Care Provider [phone] Encounter Details Date Type Department Care Team (Late st Contact Info) Description 10/20/2023 Documentation Only [facility] [address] [place] [address] Marleen Ocasio [place] [address] [place] [phone] Social History Tobacco Use Types Packs/Day Years [...] Visit [facility] [address] [place] [address] Alfredo Iglesias MD [address] [place] [address] [place] [phone] documented as of this encounter Visit Diagnoses Not on filedocumented in this encounter Care Teams Card Feeder Relationship Specialty Start Date End Date Dana Horton MD [address] [place] [address] PCP - General 03/28/19 documented as of this encounter
--- OUTSIDE RECORDS SUMMARY | 2025-01-26 09:28 | XMS_ITS | Encounter Summary ---
Author Organization [facility], Address [address] [place] [address] Phone Care Team Providers Care Vice President Planning Name Role Phone Dana Horton MD Primary Care Provider [phone] Encounter Details Date Type Department Care Team (Late st Contact Info) Description 11/04/2021 Documentation Only [facility] [address] [place] [phone] Elsa Puente PA [address] [place] [phone] Social History Tobacco Use Types Packs/Day Years [...] Visit [facility] [address] [place] [phone] Alfredo Iglesias MD [address] [place] [phone] documented as of this encounter Visit Diagnoses Not on filedocumented in this encounter Care Teams Vice President Planning Relationship Specialty Start Date End Date Dana Horton MD [address] [place] [address] PCP - General 03/28/19 documented as of this encounter
--- OUTSIDE RECORDS SUMMARY | 2025-01-26 09:28 | XMS_ITS | Encounter Summary ---
Author Organization [employer] Address [address] [facility] 7t [place] [address] Care Team Providers Care Machine Adjuster Leader Name Role Phone Dana Horton MD Primary Care Provider [phone] Encounter Details Date Type Department Care Team (Latest Contact Info) Description 01/25/2025 Travel Social History Tobacco Use Types Packs/Day Years [...] AM EDT documented as of this encounter Functional Status * Over the past 2 weeks, how often have you been bothered by any of the following problems? Question Answer Date of Assessment Author Patient Health Questionnaire -2 Score 0 01/25/2025 10:03 AM La Chacon [place] * Little interest or pleasure in doing things Answer Date of Assessment Author Not at all 01/25/2025 10:03 AM Georgi Chacon MA * Feeling down, depressed, or hopeless [...] 10:03 AM EDT Georgi Knight MA * Thoughts that you would be better off or hurting yourself in some way Answer Date of Assessment Author Not at all 01/25/2025 10:03 AM Georgi Chacon MA * Patient Health Questionnaire-9 Score Answer Date of Assessment Author 0 01/25/2025 10:03 AM EDT Georgi Knight MA documented as of this encounter Plan of Treatment Upcoming Encounters Date Type Department Care Team (Late st Contact Info) Description 05/11/2025 10:00 AM EST Office Visit [facility] ADULT DENTAL [address] [place] [address] Aminta Rico documented as of this encounter Visit Diagnoses Not on filedocumented in this encounter Additional Health Concerns Assessment Noted Time PHQ-9 Depression Total Score: 0 01/26/20 25 10:03 AM EDT documented as of this encounter Care Teams Machine Adjuster Leader Relationship Specialty Start Date End Date Dana Horton MD [address] [place] [address] PCP - General Family Medicine 10/25/17 documented as of this encounter
--- OUTSIDE RECORDS SUMMARY | 2025-01-26 09:28 | XMS_ITS | Clinical Summary ---
Author Organization [facility] Address [address] [place] [address] Care Team Providers Care Media Associate Name Role Phone Unavailable Primary Care Provider Unavailabl e Source Comments PLEASE NOTE, if this patient is a minor, it may be UNLAWFUL to discuss sensitive information that is contained in these records (such as FAMILY PLANNING, MENTAL HEALTH or SUBSTANCE ABUSE) with the minor patient's parent or other person without the patient's specific authorization.[facility] Immunizations Immunization Administration Dates Next Due Moderna COVID-19 Vaccine, re d cap blue label, 12+ Primary Series 09/18/2020,08/21/2020 Social History Tobacco Use Types Packs/Day Years Used Date Smoking Tobacco: Never Assessed Social Connections Answer Date Recorded Social Connections and Isolation 0 08/21/2020 Financial Resource Strain Answer Date R ecorded Financial Resource Strain 0 2020 Stress Answer Date Recorded Stress 0 08/21/2020 Physical Activity Answer Date Recorded Physical Activity 0 08/21/2020 Food Insecurity Answer Date Recorded Food 0 08/21/2020 Transportation Needs Answer Date Record ed Transportation 0 08/21/2020 Housing Stability Answer Date Recorded Housing 0 08/21/2020 Safety and Environment Answer Date Soto rded Safety 0 08/21/2020 Utilities Answer Date Recorded Utilities 0 08/21/2020 Employment Answer Date Recorded Employment 0 08/21/2020 Comments Unknown Sex and Gender Information Value Date Recorded Sex Assigned at Not on file Legal Sex Female 11:56 AM PDT Gender Identity Not on file Sexual Orientation Not on file Plan of Treatment Health Maintenance Due Date Last Done Comments Hepatitis C Screening 1952 Lipid Screening 1952 Tobacco Screening 1952 Hypertension Screening (#1) 1970 Medicare Annual Wellness Visit 1970 Breast Cancer Screening (Mammogram) 1992 CT Colonography 1997 Colonoscopy 1997 Colorectal Cancer Screening 1997 FIT/gFOBT 1997 Fecal DNA 1997 Flexible Sigmoidoscopy 1997 Imm-Zoster, Recombinant (2 of 3) 01/10/2015 11/16/19 Bone Density Screening 2017 Falls Prevention 2017 Imm-Pneumococcal 50+ (2 of 2 - PCV20 or PCV21) 07/28/2019 07/27/2018 Imm-DTaP/Tdap/Td (2 - Td or Tdap) 07/22/2021 07/23/2011, 11/13/2005, 08/22/1992 Alcohol and Drug Screen 05/24/2024 Depression Annual Screen 05/24/2024 [id number] ( season) 2025 021, 08/21/2020 Imm-Influenza (#1) 2025 02/26/2020, 1 , 04/28/2018, Additional history exists [place]
--- OUTSIDE RECORDS SUMMARY | 2025-01-26 09:28 | XMS_ITS | Encounter Summary ---
Author Organization [employer] Address [address] [facility] 7t [place] [address] Care Team Providers Care Grocery Cashier Name Role Phone Dana Horton MD Primary Care Provider [phone] Reason for Visit * Reason Comments Med Refill Encounter Details Date Type Department Care Team ([facility] st Contact Info) Description 01/21/2025 Refill [facility] CHC MED & PEDS [address] [place], [place] [phone] Dana Horton MD [address] [place] [address] Social History Tobacco Use Types Packs/Day Years [...] 05/11/2025 10:00 AM EST Office Visit [facility] ADULT DENTAL [address] [place] [address] Aminta Rico documented as of this encounter Visit Diagnoses Not on filedocumented in this encounter Additional Health Concerns Assessment Noted Time PHQ-9 Depression Total Score: 0 11/12/19 23 10:21 AM EDT documented as of this encounter Care Teams Grocery Cashier Relationship Specialty Start Date End Date Dana Horton MD [address] [place] [address] PCP - General Family Medicine 10/25/17 documented as of this encounter
--- OUTSIDE RECORDS SUMMARY | 2025-01-26 09:28 | XMS_ITS | Encounter Summary ---
Author Organization [email or web address] Address [address] [place] [address] 7t [place] [address] Care Team Providers Care Face Burler Name Role Phone Dana Horton MD Primary Care Provider [phone] Reason for Visit * Reason Onset Date Comments Appointment Request 08/26/2022 Encounter Details Date Type Department Care Team (Late Contact Info) Description 08/26/2022 Telephone [facility] [place] MED & PEDS [address] [place] [address] Dana Horton MD [address] [place] [address] Appointment Request Social History Tobacco Use Types Packs/Day Years Used Date Smoking Tobacco: Never Assessed Comments Unknown Sex and Gender Information Value Date Recorded Sex Assigned at Female 03/23/2022 10:14 AM EDT Legal Sex Female 10:14 AM EDT Gender Identity Female 03/23/2022 10:14 AM EDT Sexual Orientation Straight 03/23/2022 10 :14 AM EDT documented as of this encounter Miscellaneous Notes * Telephone Encounter - Christianne Anderson - 08/26/2022 9:59 AM EDT Tc from pt requesting an appt with provider regarding a routine follow up appt. Please contact pt at [phone] Italian speaker documented in this encounter Plan of Treatment Upcoming Encounters Date Type Department Care Team (Late Contact Info) Description 05/11/2025 10:00 AM EST Office Visit [facility] ADULT DENTAL [address] [place] [address] Aminta Rico documented as of this encounter Visit Diagnoses Not on filedocumented in this encounter Care Teams Face Burler Relationship Specialty Start Date End Date Dana Horton MD [address] [place] [address] PCP - General Family Medicine 10/25/17 documented as of this encounter
--- OUTSIDE RECORDS SUMMARY | 2025-01-26 09:28 | XMS_ITS | Encounter Summary ---
Author Organization [employer] Address [address] [facility] 7t [place] [address] Care Team Providers Care Sane Rn Name Role Phone Dana Horton MD Primary Care Provider [phone] Reason for Visit * Reason Comments Med Refill Encounter Details Date Type Department Care Team ([facility] st Contact Info) Description 01/19/2024 Refill [facility] CHC MED & PEDS [address] [place], [place] [phone] Dana Horton MD [address] [place] [address] Social History Tobacco Use Types Packs/Day Years [...] Description 05/11/2025 10:00 AM EST Office Visit [facility] ADULT DENTAL [address] [place] [address] Aminta Rico documented as of this encounter Visit Diagnoses Not on filedocumented in this encounter Additional Health Concerns Assessment Noted Time PHQ-9 Depression Total Score: 0 11/12/19 23 10:21 AM EDT documented as of this encounter Care Teams Sane Rn Relationship Specialty Start Date End Date Dana Horton MD [address] [place] [address] PCP - General Family Medicine 10/25/17 documented as of this encounter
--- OUTSIDE RECORDS SUMMARY | 2025-01-26 09:28 | XMS_ITS | Clinical Summary ---
Author Organization [employer] Address [address] [facility] [address] [place] [address] Care Team Providers Care Straddle Bug Driver Name Role Phone Dana Horton MD Primary Care Provider [phone] Allergies Active Allergy Reactions Criticality Noted Date Comments Inck Inhibitors Cough 06/17/2010 Other reaction(s): Other (see comments) Cough Nifedipine Rash Low 06/17/2010 Other reaction(s): unspecified Verapamil Rash Low 06/17/2010 Other reaction(s): unspecified Medications FeroSul 325 (65 Fe) MG tablet Take 1 tablet by mouth with breakfast. 01/15/20 22 Active Diclofenac Sodium (Voltaren) 1 % gel Use topical BID 100 g 3 10/21/19 24 Active metoprolol succinate XL (Toprol-XL) 100 MG 24 hr tablet Take 1 tablet by mouth Once per day. 07/24/19 16 Active SUMAtriptan (Imitrex) 100 MG tablet Take 100 mg by mouth 1 (one) time if needed. Active topiramate (Topamax) 25 MG tablet Take 1 tablet by mouth Once per day. Active albuterol (Ventolin HFA) 108 (90 Base) MCG/ACT inhaler inhale 2 puff by inhalation route every 4 hours as needed 18 g 11 07/18/19 25 Active levothyroxine (Synthroid, Levoxyl) 25 MCG tablet Take 1 tablet (25 mcg) by mouth before breakfast. 90 tablet 3 07/18/19 25 Active triamcinolone (Kenalog) 0.1 % creamIndicatio ns:Intrinsic eczema Apply topically if needed in the morning and at bedtime (pain and swelling). 30 g 2 08/04/19 25 Active Pulmicort Flexhaler 180 MCG/ACT inhaler INHALE 1 PUFF BY MOUTH IN THE MORNING AND AT BEDTIME. RINSE MOUTH WITH WATER AFTER USE FOR AFTERTASTE AND INCIDENCE OF CANDIDIASIS. DO NOT SWALLOW 1 each 10/28/19 25 Active chlorhexidine (Peridex) 0.12 % solutionIndica tions:History of tooth extraction, unspecified edentulism class Swish 15 mL morning and night for 1 minute. Spit, do not swallow. Do not eat or drink for 30 minutes following use. 473 mL 11/15/19 25 Active hydroCHLOROthi azide (HYDRODiuril) 25 MG tablet TAKE 1 TABLET(25 MG) BY MOUTH IN THE MORNING 90 tablet 01/24/20 25 Active hydrALAZINE (Apresoline) 25 MG tablet TAKE 1 TABLET BY MOUTH DAILY 90 tablet 01/24/20 25 Active aspirin 81 MG EC tablet Take 1 tablet (81 mg) by mouth Once per day. 30 tablet 11 01/26/20 25 Active nystatin (Mycostatin) [id number] UNIT/GM powder Apply topically 2 times daily. 60 g 3 01/26/20 25 026 Active aspirin 81 MG EC tablet Take 81 mg by mouth. 03/11/20 21 025 Discontinued(Re order (will not trigger notification to Pharmacy)) predniSONE (Deltasone) 10 MG tablet 4 pills po qd x 3 days, 3 pills po qd x 3 days, 2 pills po qd x 2 days, 1 pills po qd x 2 days 06/04/19 24 025 Discontinued hydroCHLOROthi azide (HYDRODiuril) 25 MG tablet TAKE 1 TABLET(25 MG) BY MOUTH IN THE MORNING 90 tablet 10/26/19 25 025 Discontinued hydrALAZINE (Apresoline) 25 MG tablet TAKE 1 TABLET(25 MG) BY MOUTH DAILY 90 tablet 10/26/19 25 025 Discontinued(Re order (will not trigger notification to Pharmacy)) Active Problems Problem Noted Date Diagnosed Date Essential hypertension 04/15/2015 Subclinical hypothyroidism 12/11/2011 Impaired fasting glucose 11/19/2011 Obesity 11/12/2011 Encounters Date Type Department Care Team Description 01/25/2025 10:15 AM EDT Office Visit [facility] [address] [place] [address] Dana Horton MD Essential hypertension (Primary Dx); Moderate persistent asthma with acute exacerbation; Hypothyroidism, unspecified type; Encounter for immunization; Candidal intertrigo; Encounter for annual wellness visit 01/25/2025 Travel 01/24/2025 Telephone [facility] [address] [place] [address] Dana Horton MD Chart prep 01/21/2025 Refill [facility] [address] [place] [address] Dana Horton MD 01/20/2025 Refill [facility] [address] [place] [address] Dana Horton MD 01/17/2025 Patient Outreach [facility] [address] [place], [place] [phone] Dana Horton MD Pre-visit Planning (SDOH screening negative and Tobacco screening negative) 11/30/2024 10:30 AM EDT Office Visit [facility] [address] [place] [address] Wesley Tristan DMD Dental caries (Primary Dx) 11/14/2024 2:30 PM EDT Office Visit [facility] [address] [place] [address] Wesley Tristan DMD History of tooth extraction, unspecified edentulism class (Primary Dx) 11/08/2024 9:45 AM EDT Office Visit [facility] [address] [place] [address] Wesley Tristan DMD Chronic apical abscess (Primary Dx) 11/08/2024 9:00 AM EDT Office Visit [facility] [address] [place] [address] Aminta Rico Dental calculus (Primary Dx); Pain due to dental caries; Dental caries; Dental abscess 10/26/2024 Refill [facility] [address] [place] [address] Dana Horton MD from Last 3 Months Immunizations Immunization Administration Dates Next Due Influenza High-dose Quadriva lent Preservative Free 03/11/2022,02/26/2020 Influenza Injectable Quadriv alant Preservative Free IIV4 MDCK 04/22/2021 Influenza injectable quadriv alent IIV4 with preservative 03/07/2019,04/28/2018,04/01/2016,04/02 Influenza, IIV3, injectable 03/26/2014,0 02/09/2011,01/20/2011,03/15,04/07/2006 Influenza, Split (incl. hubert fied surface antigen) 04/03/2013,02/19/2012 Novel [id number] 04/22/2016 Pneumococcal Conjugate PCV 13 07/27/2018 Pneumococcal Polysaccharide PPSV23 11/11/2022 TD (adult), 2 Lf tetanus tox oid, preservative free, adsorbed 11/13/2005,08/22/1992 Tdap 11/11/2022,07/23/2011 Zoster, live 11/15/2014 Social History Tobacco Use Types Packs/Day Years [...] Orientation Straight 03/23/2022 10 :14 AM EDT Last Filed Vital Signs Vital Sign Reading [...] Mass Index 38.25 01/25/2025 9:49 AM EDT Plan of Treatment Upcoming Encounters Date Type Department Care Team (Late st Contact Info) Description 05/11/2025 10:00 AM EST Office Visit [facility] [address] [place] [address] Aminta Rico Health Maintenance Due Date Last Done Comments CT Colonography 1952 FIT DNA/Cologuard 1952 FIT 1950 FOBT 1950 Sigmoidoscopy 1952 Hepatitis C Screening 1970 RSV Patients and Patients Aged 60 years or older (1 - Risk 60-74 years 1-dose series) 2012 Zoster Vaccines (2 of 3) 01/10/2015 11/15/2014 COVID-19 Vaccine ( - season) 2025 04/21/2022, 07/08/2021, 09/18/2020, Additional history exists Influenza Vaccine (#1) 2025 2, 04/22/2021, 02/26/2020, Additional history exists Dental Oral Exam 05/11/2025 11/08/2024, 03/2024, 06/01/2019, Additional history exists Dental Prophylaxis 05/11/2025 11/08/2024, 1 07/04/2023, 12/26/2020, Additional history exists Mammogram 08/25/2025 08/25/2024, 040 08/2024, 08/25/2024 Dental X-Ray: Bitewings 11/09/2025 11/09/19 25, 05/03/2024, 12/26/2020, Additional history exists SDOH Screening 01/17/2026 01/17/2025 Alcohol/Substance Use Screening 01/25/2026 01/25/2025 Depression Screening 01/25/2026 01/25/2025, 01/26/20 Tobacco Screening 01/25/2026 01/25/2025 Dental X-Ray: Full Mouth 05/04/2027 05/03/2024, 050 12/2017 Lipid Panel 11/12/2027 11/11/2022, 08/22, 05/05/2021, Additional history exists Colonoscopy 03/09/2031 03/09/2024, 02/05/2016 Colorectal Cancer Screening 03/09/2031 DTaP/Tdap/Td Vaccines (3 - Td or Tdap) 11/11/2032 11/11/2022, 07/23/2011, [...] patient's age to complete this topic Meningococcal Vaccine Aged Out No estuardo bony eligible based on patient's age to complete this topic RSV under 20 months Aged Out No longe r eligible based on patient's age to complete this topic Rotavirus Vaccines Aged Out No longer eligible based on patient's age to complete this topic Procedures Procedure Name Priority Date/Time Associated Diagnosis Comments CASE PRESENTATION, DETAILED AND EXTENSIVE TREATMENT PLANNING Routine 11/30/2024 10:30 AM EDT Dental caries 28 MOD RESIN-BASED COMPOSITE - 3 SURF, POSTERIOR Routine 11/30/2024 10:30 AM EDT Dental caries CASE PRESENTATION, DETAILED AND EXTENSIVE TREATMENT PLANNING Routine 11/14/2024 2:30 PM EDT History of tooth extraction, unspecified edentulism class INTRAORAL - PERIAPICAL FIRST RADIOGRAPHIC IMAGE Routine 11/14/2024 2:30 PM EDT History of tooth extraction, unspecified edentulism class RE-EVAL - POST-OP OFFICE VISIT Routine 11/14/2024 2:30 PM EDT History of tooth extraction, unspecified edentulism class CASE PRESENTATION, DETAILED AND EXTENSIVE TREATMENT PLANNING Routine 11/08/2024 9:45 AM EDT Chronic apical abscess 3 EXTRACTION, ERUPTED TOOTH OR EXPOSED ROOT (ELEVATION/FORCEPS REMOVAL) Routine 11/08/2024 9:45 AM EDT Chronic apical abscess PERIODIC ORAL EVALUATION - ESTABLISHED PATIENT Routine 11/08/2024 9:00 AM EDT Pain due to dental caries Dental caries Dental abscess INTRAORAL - PERIAPICAL FIRST RADIOGRAPHIC IMAGE Routine 11/08/2024 9:00 AM EDT Pain due to dental caries Dental caries Dental abscess BITEWING - SINGLE RADIOGRAPHIC IMAGE Routine 11/08/2024 9:00 AM EDT Pain due to dental caries Dental caries Dental abscess ORAL HYGIENE INSTRUCTIONS Routine 11/08/2024 9:00 AM EDT Pain due to dental caries Dental caries Dental abscess CASE PRESENTATION, DETAILED AND EXTENSIVE TREATMENT PLANNING Routine 11/08/2024 9:00 AM EDT Pain due to dental caries Dental caries Dental abscess PROPHYLAXIS - ADULT Routine 11/08/2024 9 :00 AM EDT Pain due to dental caries Dental caries Dental abscess HM MAMMOGRAPHY Routine 08/25/2024 10:26 AM EDT INTRAORAL - COMPLETE SERIES OF RADIOGRAPHIC IMAGES Routine 05/03/2024 10:00 AM EST Dental calculus Dental caries HM COLONOSCOPY Routine 03/09/2024 LIPID PANEL, STANDARD Routine 11/11/2022 10:42 AM EDT Essential hypertension from Last 3 Months or Most Recently Relevant to Health Maintenance Results * Hm Mammography (08/25/2024 10:26 AM EDT) Anatomical Region Laterality Modality Other us Historical Provider MD HEALTH MAINTENANCE Final Result * Colonoscopy (03/09/2024) Colonoscopy Normal Normal Narrative Isabel Worthington - 03/09/2024 Repeat in 7-10 years ( see external hospital admission note on 03/09/2024) us Historical Provider MD HEALTH MAINTENANCE Final Result * Lipid Panel, Standard (11/11/2022 10:42 AM EDT) Cholesterol, Total 167 <200 mg/dL PPS HDL Cholesterol 79 > OR = 50 mg/dL PPS Triglycerides 79 <150 mg/dL PPS LDL Cholesterol 72 mg/dL (calc) PPS Comment: Reference range: <100 Desirable range <100 mg/dL for primary prevention; <70 mg/dL for patients with CHD or diabetic patients with > or = 2 CHD risk factors. LDL-C is now calculated using the Leonardo-Ramana calculation, which is a validated novel method providing better accuracy than the Friedewald equation in the estimation of LDL-C. Leonardo DELEON et al. DRE. 2013;310(19): 8044-7851 (http://education.[employer].Moven/faq/ZRE831) Chol/HDLC Ratio 2.1 <5.0 (calc) Miso Mediat Non-HDL Cholesterol 88 <130 mg/dL (calc) PPS Comment: For patients with diabetes plus 1 major ASCVD risk factor, treating to a non-HDL-C goal of <100 mg/dL (LDL-C of <70 mg/dL) is considered a therapeutic option. Blood Venous blood specimen / Unknown 11/11/2022 10:42 AM EDT 11/11/2022 10:42 AM EDT Narrative [facility] - 11/12/2022 5:10 AM EDT FASTING:YES FASTING: YES us Dana Horton MD LAB BLOOD ORDERABLES Final Resul t [facility] [address], [place] [address] [facility] [address] [place] [address] from Last 3 Months or Most Recently Relevant to Health Maintenance Insurance MEDICARE Member Subscriber Plan / Payer (Ef fective 2022-Present) Name:Josephine Marin Member ID:[id number] Relation to Subscriber:Self Name:Amanda Marinlida Subscriber ID:[id number] Payer ID:[id number] Group ID:Not on file Type:Medicare Address: [facility] [address] [address] [facility] STANDARD DENTAL - HSN FULL (MEDICAID) Care Teams Straddle Bug Driver Relationship Specialty Start Date End Date Dana Horton MD [address] [place] [id number] PCP - General Family Medicine 10/25/17
--- OUTSIDE RECORDS SUMMARY | 2025-01-26 09:28 | XMS_ITS | Encounter Summary ---
Author Organization [employer] Address [address] [facility] [address] [place] [address] Care Team Providers Care Conservation Policy Analyst Name Role Phone Dana Horton MD Primary Care Provider [phone] Encounter Details Date Type Department Care Team (Late st Contact Info) Description 08/28/2024 Orders Only [facility] [address] [place] [address] ProviderTracey MD Social History Tobacco Use Types Packs/Day Years [...] Visit [facility] [address] [place] [address] Aminta Rico documented as of this encounter Procedures Procedure Name Priority Date/Time Associated Diagnosis Comments HM MAMMOGRAPHY Routine 08/25/2024 10:26 AM EDT documented in this encounter Results * Hm Mammography (08/25/2024 10:26 AM EDT) Anatomical Region Laterality Modality Other Historical Provider HEALTH MAINTENANCE Final Result documented in this encounter Visit Diagnoses Not on filedocumented in this encounter Additional Health Concerns Assessment Noted Time PHQ-9 Depression Total Score: 0 11/12/19 23 10:21 AM EDT documented as of this encounter Care Teams Conservation Policy Analyst Relationship Specialty Start Date End Date Dana Horton MD [address] [place] [id number] PCP - General Family Medicine 10/25/17 documented as of this encounter
--- OUTSIDE RECORDS SUMMARY | 2025-01-26 09:28 | XMS_ITS | Encounter Summary ---
Author Organization [facility], Address [address] [place] [address] Phone Care Team Providers Care Team Physician Name Role Phone Dana Horton MD Primary Care Provider [phone] Encounter Details Date Type Department Care Team (Late st Contact Info) Description 03/31/2024 Documentation Only [facility] [address] [place] [address] Marleen Ocasio [place] [address] [place] [phone] Social History Tobacco Use Types Packs/Day Years [...] Visit [facility] [address] [place] [address] Alfredo Iglesias MD [address] [place] [address] [place] [phone] documented as of this encounter Visit Diagnoses Not on filedocumented in this encounter Care Teams Team Physician Relationship Specialty Start Date End Date Dana Horton MD [address] [place] [phone] PCP - General 03/28/19 documented as of this encounter
[2025-01-26 12:21] LABS: Alanine Aminotransferase 11 U/L (0-31); Albumin Level 4.1 g/dL (3.5-5.0); Alkaline Phosphatase 67 U/L (39-117); Anion Gap 13 (12-20); Aspartate Amino Transferase 24 U/L (5-31); Blood Urea Nitrogen 12 mg/dL (9-16); Calcium 9.6 mg/dL (8.4-10.2); Carbon Dioxide 29 mmol/L (22-29); Chloride 102 mmol/L (96-108); Cholesterol 157 mg/dL (<200); Estimated Glomerular Filt Rate > 60; HDL Cholesterol 65 mg/dL (>40); Potassium 4.5 mmol/L (3.3-5.1); Sodium 139 mmol/L (135-145); Total Protein 8.0 g/dL (6.5-8.0); Triglycerides 77 mg/dL (<150)
== END 2025-01-26 08:50 | disposition home or self-care (01) ==
LOC: HO.CHCLDS 08:49
PROVIDERS: PCP Student in an Organized Health Care Education/Training Program; Visit Provider Student in an Organized Health Care Education/Training Program
DX: I10 Essential (primary) hypertension (principal); E03.9 Hypothyroidism, unspecified
CPT/HCPCS: 36415; 80048; 80061; 80076; 84443